=== PATIENT | male | born 1930 | race Caucasian/White ===

== ENCOUNTER 2018-03-23 17:36 | Inpatient (IN) | payer OTHER ==
[2018-03-23 22:04] LABS: WHITE BLOOD COUNT 7.6 10^3/ul (4.8-10.8)
[2018-03-23 22:04] LABS: ADD MAN DIFF? NO; BASOPHILS % 0.3 % (0.0-2.0); EOSINOPHILS % 0.1 % (0.0-7.0); HEMATOCRIT 38.9 % (42.0-52.0); HEMOGLOBIN 13.3 g/dl (14.0-18.0); IMMATURE GRANS #M 0.02 10^3/ul; IMMATURE GRANS % (M) 0.3 %; LYMPHOCYTES # 0.6 10^3/ul (0.8-2.9); LYMPHOCYTES % 8.1 % (15.0-51.0); MEAN CORPUSCULAR HGB CONC 34.2 g/dl (32.0-37.0); MEAN CORPUSCULAR VOLUME 90.7 fl (82.0-101.0); MEAN PLATELET VOLUME 10.5 fl (7.4-10.4); MONOCYTE # 1.2 10^3/ul (0.3-0.9); MONOCYTES % 16.1 % (0.0-11.0); NEUTROPHIL # 5.7 10^3/ul (1.6-7.5); NEUTROPHILS % 75.1 % (39.0-77.0); PLATELET COUNT 145 10^3/UL (140-415); RED BLOOD COUNT 4.29 10^6/ul (4.70-6.10); RED CELL DISTRIBUTION WIDTH 13.6 % (11.5-14.5)
[2018-03-23] MEDS: SODIUM CHLORIDE 0.9% 1L BAG IV* (22:09)
[2018-03-23 22:21] LABS: LACTIC ACID 0.9 mmol/L (0.5-2.0)
[2018-03-23 22:22] LABS: ADD UMIC YES; ALANINE AMINOTRANSFERASE 15 IU/L (13-69); ALBUMIN/GLOBULIN RATIO 1.25; ALKALINE PHOSPHATASE 80 IU/L (42-121); ANION GAP 13 (8-16); ASPARTATE AMINO TRANSFERASE 20 IU/L (15-46); BILIRUBIN,INDIRECT 0.8 mg/dl (0-1.1); BILIRUBIN,TOTAL 0.8 mg/dl (0.2-1.3); BLOOD UREA NITROGEN 23 mg/dl (7-20); CALCIUM 9.1 mg/dl (8.4-10.2); CARBON DIOXIDE 26 mmol/L (21-31); CHLORIDE 104 mmol/L (97-110); CREATININE 1.03 mg/dl (0.61-1.24); GLUCOSE 123 mg/dl (70-220); POTASSIUM 3.9 mmol/L (3.5-5.1); SODIUM 139 mmol/L (135-144); TOTAL PROTEIN 7.2 g/dl (6.1-8.1); UR ASCORBIC ACID NEGATIVE (NEGATIVE); UR BILIRUBIN (Dip) NEGATIVE (NEGATIVE); UR BLOOD (Dip) NEGATIVE (NEGATIVE); UR CLARITY CLEAR (CLEAR); UR COLOR YELLOW (YELLOW); UR GLUCOSE (Dip) NEGATIVE (NEGATIVE); UR KETONES (Dip) TRACE mg/dL (NEGATIVE); UR LEUKOCYTE ESTERASE (Dip) NEGATIVE Leu/ul (NEGATIVE); UR MUCUS FEW /HPF (NONE SEEN); UR NITRITE (Dip) NEGATIVE (NEGATIVE); UR RBC 1 /HPF (0-5); UR SPECIFIC GRAVITY (Dip) 1.026 (1.003-1.030); UR TOTAL PROTEIN (Dip) 1+ mg/dl (NEGATIVE); UR UROBILINOGEN (Dip) 1+ mg/dL (NEGATIVE); UR WBC 1 /HPF (0-5)
[2018-03-23 22:34] LABS: INR 1.13; PROTIME 14.7 Sec (11.9-14.9); PT RATIO 1.1
[2018-03-23 22:35] LABS: PARTIAL THROMBOPLASTIN TIME 34.3 Sec (25.0-35.0)
[2018-03-24] MEDS: PIPER-TAZO 3.375 GM IV (PMX) 100 ML IVPB (02:14)
[2018-03-24] MEDS ORDERED: ALBUTEROL/IPRATROPIUM (NEB) 3 ML AMP HHN (04:00)
[2018-03-24] MEDS: SENNA TAB PO ×2 (04:00→11:10)
[2018-03-24] MEDS ORDERED: VANCOMYCIN IV PER PHARMACY XX (04:00)
[2018-03-24] MEDS ORDERED: ONDANSETRON 4 MG INJ IV (04:00)
[2018-03-24] MEDS ORDERED: NACL 0.9% 3 ML SYG IV (04:00)
[2018-03-24] MEDS: VANCOMYCIN 1 GM in 250 ML IVPB (05:10)
[2018-03-24 06:07] LABS: ADD MAN DIFF? NO
[2018-03-24 06:19] LABS: BASOPHILS % 0.2 % (0.0-2.0); HEMATOCRIT 38.5 % (42.0-52.0); HEMOGLOBIN 13.1 g/dl (14.0-18.0); IMMATURE GRANS #M 0.05 10^3/ul; IMMATURE GRANS % (M) 0.6 %; LYMPHOCYTES # 0.6 10^3/ul (0.8-2.9); LYMPHOCYTES % 7.4 % (15.0-51.0); MEAN PLATELET VOLUME 10.7 fl (7.4-10.4); MONOCYTES % 11.9 % (0.0-11.0); NEUTROPHIL # 6.5 10^3/ul (1.6-7.5); NEUTROPHILS % 79.9 % (39.0-77.0); PLATELET COUNT 149 10^3/UL (140-415); RED BLOOD COUNT 4.23 10^6/ul (4.70-6.10); RED CELL DISTRIBUTION WIDTH 13.5 % (11.5-14.5)
[2018-03-24 06:19] LABS: WHITE BLOOD COUNT 8.1 10^3/ul (4.8-10.8)
[2018-03-24] MEDS: PANTOPRAZOLE (EC) 40 MG TAB PO (06:44)
[2018-03-24 06:45] LABS: ALANINE AMINOTRANSFERASE 12 IU/L (13-69); ALBUMIN 3.9 g/dl (3.3-4.9); ALBUMIN/GLOBULIN RATIO 1.21; ALKALINE PHOSPHATASE 80 IU/L (42-121); ANION GAP 15 (8-16); ASPARTATE AMINO TRANSFERASE 20 IU/L (15-46); BILIRUBIN,INDIRECT 1.1 mg/dl (0-1.1); BILIRUBIN,TOTAL 1.1 mg/dl (0.2-1.3); BLOOD UREA NITROGEN 19 mg/dl (7-20); CALCIUM 8.7 mg/dl (8.4-10.2); CARBON DIOXIDE 22 mmol/L (21-31); CHLORIDE 109 mmol/L (97-110); GLUCOSE 136 mg/dl (70-220); POTASSIUM 3.7 mmol/L (3.5-5.1); SODIUM 142 mmol/L (135-144); TOTAL PROTEIN 7.1 g/dl (6.1-8.1)
[2018-03-24] MEDS ORDERED: NON-FORMULARY/PATIENT OWN MED (Omeprazole* 20 MG) PO (09:00)
[2018-03-24] MEDS ORDERED: BENAZEPRIL HYDROCHLOROTHIAZIDE PO (09:00)
[2018-03-24] MEDS: CEFEPIME 1GM/50 ML (PMX) 50 ML IVPB ×2 (11:09→20:42)
[2018-03-24] MEDS: HYDROCHLOROTHIAZIDE 12.5 MG CAP PO (11:11)
[2018-03-24] MEDS: BENAZEPRIL 10 MG TAB PO (11:11)
[2018-03-24] MEDS: AMLODIPINE 5 MG TAB PO (11:11)
[2018-03-25] MEDS: VANCOMYCIN 750 MG in SOD CHLORIDE 0.9% 150 ML IVPB (05:05)
[2018-03-25] MEDS: PANTOPRAZOLE (EC) 40 MG TAB PO (05:24)
[2018-03-25 07:51] LABS: ADD MAN DIFF? NO
[2018-03-25 07:55] LABS: ABNORMAL IP MESSAGE 1; BASOPHILS % 0.2 % (0.0-2.0); EOSINOPHILS % 0.4 % (0.0-7.0); HEMOGLOBIN 12.7 g/dl (14.0-18.0); LYMPHOCYTES # 0.6 10^3/ul (0.8-2.9); LYMPHOCYTES % 6.9 % (15.0-51.0); MEAN CORPUSCULAR HEMOGLOBIN 31.7 pg (29.0-33.0); MEAN CORPUSCULAR HGB CONC 35.3 g/dl (32.0-37.0); MEAN CORPUSCULAR VOLUME 89.8 fl (82.0-101.0); MEAN PLATELET VOLUME 10.7 fl (7.4-10.4); MONOCYTE # 0.9 10^3/ul (0.3-0.9); MONOCYTES % 11.4 % (0.0-11.0); NEUTROPHIL # 6.7 10^3/ul (1.6-7.5); NEUTROPHILS % 80.6 % (39.0-77.0); PLATELET COUNT 156 10^3/UL (140-415); POSITIVE DIFF @See below; RED BLOOD COUNT 4.01 10^6/ul (4.70-6.10); RED CELL DISTRIBUTION WIDTH 13.7 % (11.5-14.5)
[2018-03-25 07:55] LABS: WHITE BLOOD COUNT 8.3 10^3/ul (4.8-10.8)
[2018-03-25 08:18] LABS: INR 1.14; PROTIME 14.8 Sec (11.9-14.9); PT RATIO 1.2
[2018-03-25 08:20] LABS: ANION GAP 12 (8-16); BLOOD UREA NITROGEN 25 mg/dl (7-20); CALCIUM 8.7 mg/dl (8.4-10.2); CARBON DIOXIDE 21 mmol/L (21-31); CHLORIDE 111 mmol/L (97-110); CREATININE 1.33 mg/dl (0.61-1.24); GLUCOSE 114 mg/dl (70-220); MAGNESIUM 2.3 mg/dl (1.7-2.5); PHOSPHORUS 3.2 mg/dl (2.5-4.9); POTASSIUM 3.4 mmol/L (3.5-5.1); SODIUM 141 mmol/L (135-144)
[2018-03-25 08:25] LABS: URIC ACID 5.2 mg/dl (3.1-7.9)
[2018-03-25] MEDS: HYDROCHLOROTHIAZIDE 12.5 MG CAP PO (09:08)
[2018-03-25] MEDS: AMLODIPINE 5 MG TAB PO (09:09)
[2018-03-25] MEDS: BENAZEPRIL 10 MG TAB PO (09:09)
[2018-03-25] MEDS: SENNA TAB PO (09:09)
[2018-03-25] MEDS: CEFEPIME 1GM/50 ML (PMX) 50 ML IVPB ×2 (09:09→21:17)
[2018-03-25] MEDS: TAMSULOSIN (SR) 0.4 MG CAP PO (21:17)
[2018-03-26] MEDS: VANCOMYCIN 750 MG in SOD CHLORIDE 0.9% 150 ML IVPB (05:20)
[2018-03-26] MEDS: PANTOPRAZOLE (EC) 40 MG TAB PO (05:21)
[2018-03-26 08:27] LABS: ADD MAN DIFF? NO
[2018-03-26 08:40] LABS: BASOPHILS % 0.7 % (0.0-2.0); EOSINOPHILS # 0.5 10^3/ul (0.0-0.5); EOSINOPHILS % 7.9 % (0.0-7.0); HEMATOCRIT 34.2 % (42.0-52.0); HEMOGLOBIN 11.7 g/dl (14.0-18.0); LYMPHOCYTES # 0.7 10^3/ul (0.8-2.9); LYMPHOCYTES % 11.5 % (15.0-51.0); MEAN CORPUSCULAR HEMOGLOBIN 30.8 pg (29.0-33.0); MEAN CORPUSCULAR HGB CONC 34.2 g/dl (32.0-37.0); MEAN PLATELET VOLUME 11.1 fl (7.4-10.4); MONOCYTE # 0.7 10^3/ul (0.3-0.9); MONOCYTES % 11.5 % (0.0-11.0); NEUTROPHIL # 4.2 10^3/ul (1.6-7.5); NEUTROPHILS % 68.1 % (39.0-77.0); PLATELET COUNT 170 10^3/UL (140-415); RED CELL DISTRIBUTION WIDTH 13.9 % (11.5-14.5)
[2018-03-26 08:40] LABS: WHITE BLOOD COUNT 6.1 10^3/ul (4.8-10.8)
[2018-03-26] MEDS: BENAZEPRIL 10 MG TAB PO (09:08)
[2018-03-26] MEDS: AMLODIPINE 5 MG TAB PO (09:08)
[2018-03-26] MEDS: HYDROCHLOROTHIAZIDE 12.5 MG CAP PO (09:08)
[2018-03-26] MEDS: SENNA TAB PO (09:08)
[2018-03-26 09:09] LABS: ALANINE AMINOTRANSFERASE 23 IU/L (13-69); ALBUMIN 2.9 g/dl (3.3-4.9); ALKALINE PHOSPHATASE 51 IU/L (42-121); ANION GAP 10 (8-16); ASPARTATE AMINO TRANSFERASE 25 IU/L (15-46); BILIRUBIN,INDIRECT 0.7 mg/dl (0-1.1); BILIRUBIN,TOTAL 0.7 mg/dl (0.2-1.3); BLOOD UREA NITROGEN 30 mg/dl (7-20); CALCIUM 8.6 mg/dl (8.4-10.2); CARBON DIOXIDE 23 mmol/L (21-31); CHLORIDE 110 mmol/L (97-110); CREATININE 1.54 mg/dl (0.61-1.24); GLUCOSE 96 mg/dl (70-220); SODIUM 140 mmol/L (135-144); TOTAL PROTEIN 5.8 g/dl (6.1-8.1)
[2018-03-26] MEDS: CEFEPIME 1GM/50 ML (PMX) 50 ML IVPB ×2 (09:11→20:27)
[2018-03-26] MEDS: POTASSIUM CHLORIDE 20 MEQ POWDER FOR ORAL SOLN PO (18:42)
[2018-03-26] MEDS: LACTOBACILLUS RHAMNOSUS CAP PO (20:16)
[2018-03-26] MEDS: ACETAMINOPHEN 325 MG TAB PO (20:18)
[2018-03-26] MEDS: TAMSULOSIN (SR) 0.4 MG CAP PO (20:19)
[2018-03-27 05:11] LABS: ADD MAN DIFF? NO
[2018-03-27 05:16] LABS: WHITE BLOOD COUNT 6.9 10^3/ul (4.8-10.8)
[2018-03-27 05:16] LABS: BASOPHILS % 0.3 % (0.0-2.0); EOSINOPHILS # 0.1 10^3/ul (0.0-0.5); HEMATOCRIT 35.6 % (42.0-52.0); HEMOGLOBIN 12.6 g/dl (14.0-18.0); LYMPHOCYTES # 0.7 10^3/ul (0.8-2.9); LYMPHOCYTES % 9.4 % (15.0-51.0); MEAN CORPUSCULAR HEMOGLOBIN 31.7 pg (29.0-33.0); MEAN CORPUSCULAR HGB CONC 35.4 g/dl (32.0-37.0); MEAN CORPUSCULAR VOLUME 89.4 fl (82.0-101.0); MEAN PLATELET VOLUME 10.8 fl (7.4-10.4); MONOCYTES % 15.1 % (0.0-11.0); NEUTROPHILS % 72.8 % (39.0-77.0); PLATELET COUNT 166 10^3/UL (140-415); RED BLOOD COUNT 3.98 10^6/ul (4.70-6.10); RED CELL DISTRIBUTION WIDTH 13.4 % (11.5-14.5)
[2018-03-27 05:42] LABS: VANCOMYCIN,TROUGH 6.9 ug/ml (10.0-20.0)
[2018-03-27 05:43] LABS: ALANINE AMINOTRANSFERASE 23 IU/L (13-69); ALBUMIN 3.2 g/dl (3.3-4.9); ALBUMIN/GLOBULIN RATIO 1.06; ALKALINE PHOSPHATASE 58 IU/L (42-121); ANION GAP 11 (8-16); ASPARTATE AMINO TRANSFERASE 24 IU/L (15-46); BILIRUBIN,INDIRECT 0.9 mg/dl (0-1.1); BILIRUBIN,TOTAL 0.9 mg/dl (0.2-1.3); BLOOD UREA NITROGEN 23 mg/dl (7-20); CALCIUM 8.6 mg/dl (8.4-10.2); CARBON DIOXIDE 25 mmol/L (21-31); CHLORIDE 105 mmol/L (97-110); CREATININE 1.09 mg/dl (0.61-1.24); GLUCOSE 120 mg/dl (70-220); POTASSIUM 3.2 mmol/L (3.5-5.1); SODIUM 138 mmol/L (135-144); TOTAL PROTEIN 6.2 g/dl (6.1-8.1)
[2018-03-27] MEDS: LACTOBACILLUS RHAMNOSUS CAP PO ×2 (10:00→21:25)
[2018-03-27] MEDS: BENAZEPRIL 10 MG TAB PO (10:00)
[2018-03-27] MEDS: POTASSIUM CHLORIDE 20 MEQ POWDER FOR ORAL SOLN PO (10:00)
[2018-03-27] MEDS: FAMOTIDINE 20 MG TAB PO (10:00)
[2018-03-27] MEDS: HYDROCHLOROTHIAZIDE 12.5 MG CAP PO (10:00)
[2018-03-27] MEDS: SENNA TAB PO (10:00)
[2018-03-27] MEDS: AMLODIPINE 5 MG TAB PO (10:01)
[2018-03-27] MEDS: CEFEPIME 1GM/50 ML (PMX) 50 ML IVPB ×2 (10:01→21:25)
[2018-03-27] MEDS: VANCOMYCIN 750 MG in SOD CHLORIDE 0.9% 150 ML IVPB (13:05)
[2018-03-27] MEDS: FINASTERIDE 5 MG TAB PO (15:50)
[2018-03-27] MEDS ORDERED: VANCOMYCIN 750 MG in SOD CHLORIDE 0.9% 150 ML IVPB (18:30)
[2018-03-27] MEDS: TAMSULOSIN (SR) 0.4 MG CAP PO (21:25)
[2018-03-27] MEDS: ACETAMINOPHEN 325 MG TAB PO (21:26)
[2018-03-28] MEDS: VANCOMYCIN 750 MG in SOD CHLORIDE 0.9% 150 ML IVPB ×2 (00:49→12:56)
[2018-03-28] MEDS: ACETAMINOPHEN 325 MG TAB PO (06:34)
[2018-03-28] MEDS: MAGNESIUM HYDROXIDE 30ML CUP PO (06:38)
[2018-03-28] MEDS: CEFEPIME 1GM/50 ML (PMX) 50 ML IVPB ×2 (08:19→21:16)
[2018-03-28] MEDS: POTASSIUM CHLORIDE 20 MEQ POWDER FOR ORAL SOLN PO (08:19)
[2018-03-28] MEDS: SENNA TAB PO (08:20)
[2018-03-28] MEDS: FAMOTIDINE 20 MG TAB PO (08:20)
[2018-03-28] MEDS: FINASTERIDE 5 MG TAB PO (08:20)
[2018-03-28] MEDS: LACTOBACILLUS RHAMNOSUS CAP PO ×2 (08:20→21:16)
[2018-03-28] MEDS: AMLODIPINE 5 MG TAB PO (08:21)
[2018-03-28] MEDS: BENAZEPRIL 10 MG TAB PO (08:21)
[2018-03-28] MEDS: HYDROCHLOROTHIAZIDE 12.5 MG CAP PO (08:22)
[2018-03-28] MEDS: AZITHROMYCIN 250 MG TAB PO (12:54)
[2018-03-28] MEDS: POTASSIUM CHLORIDE (SR) 20 MEQ TAB PO (12:54)
[2018-03-28] MEDS: TAMSULOSIN (SR) 0.4 MG CAP PO (21:16)
[2018-03-29] MEDS: VANCOMYCIN 750 MG in SOD CHLORIDE 0.9% 150 ML IVPB (00:50)
[2018-03-29 05:22] LABS: ADD MAN DIFF? NO
[2018-03-29 05:26] LABS: BASOPHILS % 0.6 % (0.0-2.0); EOSINOPHILS # 0.3 10^3/ul (0.0-0.5); EOSINOPHILS % 4.7 % (0.0-7.0); HEMATOCRIT 34.7 % (42.0-52.0); HEMOGLOBIN 12.1 g/dl (14.0-18.0); LYMPHOCYTES # 0.6 10^3/ul (0.8-2.9); LYMPHOCYTES % 9.6 % (15.0-51.0); MEAN CORPUSCULAR HEMOGLOBIN 31.1 pg (29.0-33.0); MEAN CORPUSCULAR HGB CONC 34.9 g/dl (32.0-37.0); MEAN CORPUSCULAR VOLUME 89.2 fl (82.0-101.0); MEAN PLATELET VOLUME 10.4 fl (7.4-10.4); MONOCYTE # 0.7 10^3/ul (0.3-0.9); MONOCYTES % 11.1 % (0.0-11.0); NEUTROPHIL # 4.7 10^3/ul (1.6-7.5); NEUTROPHILS % 73.5 % (39.0-77.0); PLATELET COUNT 182 10^3/UL (140-415); RED BLOOD COUNT 3.89 10^6/ul (4.70-6.10); RED CELL DISTRIBUTION WIDTH 13.7 % (11.5-14.5)
[2018-03-29 05:26] LABS: WHITE BLOOD COUNT 6.4 10^3/ul (4.8-10.8)
[2018-03-29 05:39] LABS: MAGNESIUM 2.2 mg/dl (1.7-2.5)
[2018-03-29 05:45] LABS: ANION GAP 12 (8-16); BLOOD UREA NITROGEN 21 mg/dl (7-20); CALCIUM 8.6 mg/dl (8.4-10.2); CARBON DIOXIDE 25 mmol/L (21-31); CHLORIDE 106 mmol/L (97-110); CREATININE 1.04 mg/dl (0.61-1.24); GLUCOSE 110 mg/dl (70-220); POTASSIUM 4.5 mmol/L (3.5-5.1); SODIUM 138 mmol/L (135-144)
[2018-03-29] MEDS: CEFEPIME 1GM/50 ML (PMX) 50 ML IVPB (09:02)
[2018-03-29] MEDS: FAMOTIDINE 20 MG TAB PO (09:02)
[2018-03-29] MEDS: FINASTERIDE 5 MG TAB PO (09:02)
[2018-03-29] MEDS: POTASSIUM CHLORIDE 20 MEQ POWDER FOR ORAL SOLN PO (09:02)
[2018-03-29] MEDS: AZITHROMYCIN 250 MG TAB PO (09:02)
[2018-03-29] MEDS: BENAZEPRIL 10 MG TAB PO (09:03)
[2018-03-29] MEDS: SENNA TAB PO (09:03)
[2018-03-29] MEDS: AMLODIPINE 5 MG TAB PO (09:03)
[2018-03-29] MEDS: HYDROCHLOROTHIAZIDE 12.5 MG CAP PO (09:03)
[2018-03-29] MEDS: LACTOBACILLUS RHAMNOSUS CAP PO (09:03)
[2018-03-29 12:59] LABS: VANCOMYCIN,TROUGH 13.5 ug/ml (10.0-20.0)
[2018-03-29] MEDS: TRIMETHOPRIM/SULFAMETHOX (DS) TAB PO ×2 (14:14→22:52)
[2018-03-29] MEDS: TAMSULOSIN (SR) 0.4 MG CAP PO (21:31)
[2018-03-30] MEDS: POTASSIUM CHLORIDE 20 MEQ POWDER FOR ORAL SOLN PO (09:31)
[2018-03-30] MEDS: FINASTERIDE 5 MG TAB PO (09:32)
[2018-03-30] MEDS: TRIMETHOPRIM/SULFAMETHOX (DS) TAB PO ×2 (09:32→21:06)
[2018-03-30] MEDS: MULTIVITAMINS THERAPEUTIC TAB PO (09:32)
[2018-03-30] MEDS: SENNA TAB PO (09:32)
[2018-03-30] MEDS: ASPIRIN (EC) 81 MG TAB PO (09:33)
[2018-03-30] MEDS: HYDROCHLOROTHIAZIDE 12.5 MG CAP PO (09:33)
[2018-03-30] MEDS: BENAZEPRIL 10 MG TAB PO (09:33)
[2018-03-30] MEDS: AMLODIPINE 5 MG TAB PO (09:34)
[2018-03-30] MEDS: BETAMET NA PHOS/AC(6 MG/ML) 5ML INJ INJ (19:19)
[2018-03-30] MEDS: BUPIVACAINE 0.5%/EPI (SDV) 30 ML INJ INJ (19:20)
[2018-03-30] MEDS: TAMSULOSIN (SR) 0.4 MG CAP PO (21:06)
[2018-03-31] MEDS: MULTIVITAMINS THERAPEUTIC TAB PO (09:02)
[2018-03-31] MEDS: ASPIRIN (EC) 81 MG TAB PO (09:02)
[2018-03-31] MEDS: FINASTERIDE 5 MG TAB PO (09:02)
[2018-03-31] MEDS: AMLODIPINE 5 MG TAB PO (09:02)
[2018-03-31] MEDS: SENNA TAB PO (09:02)
[2018-03-31] MEDS: POTASSIUM CHLORIDE 20 MEQ POWDER FOR ORAL SOLN PO (09:02)
[2018-03-31] MEDS: BENAZEPRIL 10 MG TAB PO (09:03)
[2018-03-31] MEDS: HYDROCHLOROTHIAZIDE 12.5 MG CAP PO (09:03)
== END 2018-03-31 18:40 | disposition home health service (06) | DRG 872 ==
LOC: E/R 17:36 → PP2 03-24 01:04
DX: A41.9 Sepsis, unspecified organism (principal); L03.113 Cellulitis of right upper limb; N39.0 Urinary tract infection, site not specified; N17.9 Acute kidney failure, unspecified; R33.9 Retention of urine, unspecified; N13.9 Obstructive and reflux uropathy, unspecified; I10 Essential (primary) hypertension; K21.9 Gastro-esophageal reflux disease without esophagitis; D64.9 Anemia, unspecified; B96.20 Unspecified Escherichia coli [E. coli] as the cause of diseases classified elsewhere; N40.1 Benign prostatic hyperplasia with lower urinary tract symptoms; F09 Unspecified mental disorder due to known physiological condition; M19.021 Primary osteoarthritis, right elbow
CPT/HCPCS: 36415; 71045; 73080-RT; 76775; 80048; 80053; 80202; 81001; 83605; 83735; 84100; 84153; 84154; 84484; 84560; 85025; 85610; 85730; 87040; 87086; 93005; 97110; 97116; 97161; 97167; 97530; 99285-25